=== PATIENT | female | born 1970 | race African-American/Black ===

== ENCOUNTER 2021-04-27 09:29 | Observation (INO) ==
[2021-04-27] MEDS ORDERED: ASPIRIN 325 MG TABLET PO STA (10:47)
[2021-04-27 11:10] LABS: Albumin 4.1 G/DL (3.4-5.0); Bilirubin,Total 0.5 MG/DL (0.20-1.00); Calcium 9.1 MG/DL (8.5-10.1); Osmolality,Calculated 272.7 MOS/KG (273-304); Potassium 4.4 MMOL/L (3.5-5.1); Total Protein 8.2 G/DL (6.4-8.2)
[2021-04-27 11:28] LABS: Eosinophils # 0.1 10*3/uL (0.0-0.87); Eosinophils % 2.3 % (0.00-10.9); Hematocrit 38.3 VOL% (35.7-47.0); Hemoglobin 13.1 GM/DL (12.0-16.0); Immature Granulocytes % 0.3 %; Immature Granulocytes Absolute 0.01 #; Lymphocytes # 1.3 10*3/uL (1.4-4.0); Lymphocytes % 44.1 % (21.3-54.2); Mean Corpuscular HGB Conc 34.2 GM/DL (32-36); Mean Corpuscular Volume 92.7 FL (87-102); Mean Platelet Volume 9.6 FL (9.6-12.0); Neutrophils % 41.3 % (38.7-73.9); Platelet Count 306 T/CUMM (130-400); Red Blood Count 4.13 MC/CUMM (3.8-5.5); Red Cell Distribution Width 12.7 % (9.3-17.3)
[2021-04-27 11:37] LABS: INR 1.1; PT Patient Result 12.4 SECS (10.5-12.0); Partial Thromboplastin Time 29.6 SECS (23.9-33.8)
[2021-04-27 11:56] LABS: Platelet Estimate Normal
[2021-04-27 11:57] LABS: Anisocytosis 1+; Macrocytosis 1+
[2021-04-27 12:31] LABS: Bilirubin,Urine Negative (Negative); Blood, Urine Negative (Negative); Glucose,Urine (UA) Negative (Negative); Ketones,Urine 5 mg/dL (Negative); Mucus,Urine Occasional /LPF (Occasional); Nitrite,Urine Negative (Negative); Protein,Urine Negative; RBC,Urine 2 /HPF (0-4); Squamous Epithelial Cell,Urine Occasional /HPF (0-10); Urine Appearance CLEAR (Clear); Urine Color Straw (Yellow); Urine Specific Gravity 1.012 (1.001-1.035); Urine Urobilinogen < 2.0 EU/DL (0.2-1.0)
[2021-04-27 12:42] LABS: Barbiturates Screen,Urine Negative (Negative); Benzodiazepines Screen,Urine Negative (Negative); Cannabinoid Screen,Urine Negative (Negative); Opiate Screen,Urine Negative (Negative); Phencyclidine Screen,Urine Negative (Negative)
[2021-04-27] MEDS ORDERED: GLUCAGON 1 MG VIAL IM PRN ×2 (14:17)
[2021-04-27] MEDS ORDERED: DEXTROSE 50% 25 GM/50 ML VIAL IV PRN ×2 (14:17)
[2021-04-27] MEDS ORDERED: ONDANSETRON 4 MG/2 ML VIAL IV PRN (14:17)
[2021-04-27] MEDS ORDERED: DOCUSATE SODIUM 100 MG CAPSULE PO PRN (14:17)
[2021-04-27] MEDS ORDERED: ACETAMINOPHEN 325 MG TABLET PO PRN (14:17)
[2021-04-27] MEDS ORDERED: NITROGLYCERIN SL 0.4 MG TABLET SL PRN (14:22)
[2021-04-27] MEDS ORDERED: ENOXAPARIN 40 MG/0.4 ML SYRINGE SUBCUT SCH (14:30)
[2021-04-27] MEDS: PANTOPRAZOLE 40 MG TABLET PO SCH (15:35)
[2021-04-27] MEDS: INSULIN REGULAR 100 UNIT/ML SUBCUT SCH (22:32)
[2021-04-28 04:55] LABS: Basophils % 0.5 % (0.0-0.8); Eosinophils # 0.1 10*3/uL (0.0-0.87); Eosinophils % 1.6 % (0.00-10.9); Hematocrit 35.7 VOL% (35.7-47.0); Hemoglobin 12.7 GM/DL (12.0-16.0); Immature Granulocytes % 0.2 %; Immature Granulocytes Absolute 0.01 #; Lymphocytes # 2.3 10*3/uL (1.4-4.0); Lymphocytes % 52.5 % (21.3-54.2); Mean Corpuscular HGB Conc 35.6 GM/DL (32-36); Mean Corpuscular Volume 92.2 FL (87-102); Mean Platelet Volume 9.3 FL (9.6-12.0); Monocytes % 14.2 % (1.7-12.7); Platelet Count 272 T/CUMM (130-400); Red Blood Count 3.87 MC/CUMM (3.8-5.5); Red Cell Distribution Width 12.6 % (9.3-17.3); White Blood Count 4.4 T/CUMM (4-12)
[2021-04-28 05:17] LABS: Calcium 8.5 MG/DL (8.5-10.1); Osmolality,Calculated 275.5 MOS/KG (273-304); Potassium 4.2 MMOL/L (3.5-5.1); Risk Ratio 2.88; Thyroid Stimulating Hormone 1.36 uIU/ml (0.358-3.74)
[2021-04-28 05:21] LABS: Eosinophils 1 % (0-10); Lymphocytes 60 % (20-55); Segmented Neutrophils 28 % (50-85); Total Cells Counted 100
[2021-04-28 05:22] LABS: Hypochromasia Slight; Microcytosis Slight; Platelet Estimate Adequate
[2021-04-28] MEDS ORDERED: ASPIRIN EC 325 MG TABLET PO SCH (09:00)
[2021-04-28] MEDS ORDERED: METOPROLOL TARTRATE 25 MG TABLET PO SCH (09:30)
[2021-04-28] MEDS: PANTOPRAZOLE 40 MG TABLET PO SCH (09:46)
[2021-04-28] MEDS ORDERED: ASCORBIC ACID 500 MG TABLET PO SCH (10:30)
[2021-04-28 11:49] VITALS: BP 105/69
[2021-04-28] MEDS: INSULIN REGULAR 100 UNIT/ML SUBCUT SCH (13:10)
== END 2021-04-28 13:09 | disposition home or self-care (01) ==
LOC: N.EDINP 09:29 → N.ED 09:29 → N.TELES 20:30
PROVIDERS: ADMIT Hospitalist; ATTEND Hospitalist